=== PATIENT | male | born 1935 | race Caucasian/White ===

== ENCOUNTER 2020-12-22 11:17 | Emergency (ER) | payer OTHER, MEDICARE ==
[~2020-12-22] VITALS: Ht 177.8 cm; Wt 73.9 kg
[2020-12-22 12:08] LABS: CLARITY,URINE CLEAR (Clear); COLOR,URINE YELLOW (Yellow); GLUCOSE, URINE NEGATIVE (Neg); KETONES,URINE NEGATIVE (Neg); LEUKOCYTE ESTERASE ,URINE NEGATIVE (Neg); NITRITES, URINE NEGATIVE (Neg); OCCULT BLOOD,URINE LARGE (Neg); PROTEIN,URINE 30 mg/dl (Neg); UROBILINOGEN,URINE 0.2 E.U/dL (0.2-1.0)
[2020-12-22 12:09] LABS: UA COLLECTION TYPE CLN CATCH MIDSTREAM
[2020-12-22 12:16] LABS: RBC,URINE 50-100 /HPF (0-2)
[2020-12-22 12:17] LABS: BACTERIA,URINE FEW /HPF (Neg); MUCUS STRANDS NONE SEEN /LPF (Neg); SQUAMOUS EPITHELIAL CELL,UR FEW /LPF (FEW)
[2020-12-22 13:54] LABS: BASOPHILS % (AUTO) 0.6 % (0-1); EOSINOPHILS # (AUTO) 0.4 X10'3 (0-0.9); EOSINOPHILS % (AUTO) 5.2 % (0-6); HEMATOCRIT 42.7 % (42.0-52.0); HEMOGLOBIN 14.3 g/dl (14.0-17.9); LYMPHOCYTES # (AUTO) 1.7 X10'3 (1.1-4.8); LYMPHOCYTES % (AUTO) 20.8 % (21-51); MEAN CORPUSCULAR HEMOGLOBIN 32.4 PG (27.0-31.0); MEAN CORPUSCULAR HGB CONC 33.5 g/dL (33.0-36.5); MEAN CORPUSCULAR VOLUME 96.7 FL (78-98); MEAN PLATELET VOLUME 7.9 FL (7.4-10.4); MONOCYTES # (AUTO) 0.6 X10'3 (0-0.9); MONOCYTES % (AUTO) 7.9 % (2-12); NEUTROPHILS # (AUTO) 5.3 X10'3 (1.8-7.7); NEUTROPHILS % (AUTO) 65.5 % (42-75); PLATELET COUNT 192 X10'3 (140-440); RED BLOOD COUNT 4.42 X10'6 (4.70-6.10); RED CELL DISTRIBUTION WIDTH 13.7 % (11.5-14.5); WHITE BLOOD COUNT 8.1 X10'3 (4.5-11.0)
[2020-12-22 14:07] LABS: ALANINE AMINOTRANSFERASE 22 U/L (12-78); ALBUMIN 3.7 G/DL (3.4-5.0); ALBUMIN/GLOBULIN RATIO 1.1 (1.1-1.5); ALKALINE PHOSPHATASE 67 IU/L (46-116); ANION GAP 6 (8-16); ASPARTATE AMINO TRANSFERASE 22 U/L (10-37); BILIRUBIN,TOTAL 0.8 MG/DL (0.1-1.0); BLOOD UREA NITROGEN 18 MG/DL (7-18); BUN/CREATININE RATIO 15.4 (5.4-32.0); CALCIUM 8.3 MG/DL (8.5-10.1); CHLORIDE 107 MMOL/L (99-107); CREATININE 1.17 MG/DL (0.60-1.10); GLUCOSE 129 MG/DL (70-104); POTASSIUM 3.9 MMOL/L (3.5-5.1); SODIUM 142 MMOL/L (135-145); TOTAL CARBON DIOXIDE 28.7 MMOL/L (24-32); TOTAL PROTEIN 7.1 G/DL (6.4-8.2); eGFR 59 ML/MIN
[2020-12-22] MEDS ORDERED: iohexol 300mg/ml 100ml inj. ONE (14:26)
[2020-12-22 15:46] VITALS: BP 150/89
== END 2020-12-22 15:47 | disposition home or self-care (01) ==
LOC: ER 11:18
DX: R31.9 Hematuria, unspecified (principal); Z90.49 Acquired absence of other specified parts of digestive tract; Z86.73 Personal history of transient ischemic attack (TIA), and cerebral infarction without residual deficits; Z79.82 Long term (current) use of aspirin
CPT/HCPCS: 36415; 74177; 80053; 81001; 85025; 87088; 99285; Q9967

== ENCOUNTER 2021-02-02 01:55 | Emergency (ER) | payer OTHER, MEDICARE ==
[~2021-02-02] VITALS: Ht 177.8 cm; Wt 72.2 kg
[2021-02-02 04:40] LABS: CLARITY,URINE CLEAR (Clear); COLOR,URINE YELLOW (Yellow); GLUCOSE, URINE NEGATIVE (Neg); KETONES,URINE NEGATIVE (Neg); LEUKOCYTE ESTERASE ,URINE SMALL (Neg); NITRITES, URINE NEGATIVE (Neg); OCCULT BLOOD,URINE MODERATE (Neg); PROTEIN,URINE NEGATIVE (Neg); UROBILINOGEN,URINE 0.2 E.U/dL (0.2-1.0)
[2021-02-02 04:47] LABS: UA COLLECTION TYPE CLN CATCH MIDSTREAM
[2021-02-02 04:51] LABS: BACTERIA,URINE NONE SEEN /HPF (Neg); MUCUS STRANDS NONE SEEN /LPF (Neg); SQUAMOUS EPITHELIAL CELL,UR FEW /LPF (FEW); WBC,URINE 0-4 /HPF (0-4)
[2021-02-02 06:13] VITALS: BP 107/69
[2021-02-03] MEDS ORDERED: FLO0.4C PO (22:17)
== END 2021-02-02 06:14 | disposition home or self-care (01) ==
LOC: ER 01:56
DX: R33.9 Retention of urine, unspecified (principal); N40.0 Benign prostatic hyperplasia without lower urinary tract symptoms; Z86.73 Personal history of transient ischemic attack (TIA), and cerebral infarction without residual deficits; Z90.49 Acquired absence of other specified parts of digestive tract
CPT/HCPCS: 51702; 81001; 87088; 99284

== ENCOUNTER 2021-02-03 13:59 | Emergency (ER) | payer OTHER, MEDICARE ==
[~2021-02-03] VITALS: Ht 177.8 cm; Wt 72.1 kg
[2021-02-03 15:05] VITALS: BP 150/85
[2021-02-03] MEDS ORDERED: FLO0.4C PO (22:17)
== END 2021-02-03 15:22 | disposition home or self-care (01) ==
LOC: ER 14:00
DX: R33.9 Retention of urine, unspecified (principal); Z59.0 Homelessness; Z90.49 Acquired absence of other specified parts of digestive tract; Z86.73 Personal history of transient ischemic attack (TIA), and cerebral infarction without residual deficits
CPT/HCPCS: 99281

== ENCOUNTER 2021-02-03 21:24 | Emergency (ER) | payer OTHER, MEDICARE ==
[~2021-02-03] VITALS: Ht 177.8 cm; Wt 76.4 kg
[2021-02-03] MEDS ORDERED: FLO0.4C PO (22:17)
[2021-02-03] MEDS ORDERED: LIDOcaine 2% 10ml TOPICAL JELLY (Urojet) TP ONE (22:20)
[2021-02-04 00:27] VITALS: BP 147/88
== END 2021-02-04 00:29 | disposition home or self-care (01) ==
LOC: ER 21:25
DX: R33.9 Retention of urine, unspecified (principal); R31.9 Hematuria, unspecified; Z86.73 Personal history of transient ischemic attack (TIA), and cerebral infarction without residual deficits; Z90.49 Acquired absence of other specified parts of digestive tract; Z79.899 Other long term (current) drug therapy
CPT/HCPCS: 51702; 99284

== ENCOUNTER 2021-02-07 16:52 | Emergency (ER) | payer OTHER, MEDICARE ==
[~2021-02-07] VITALS: Ht 177.8 cm; Wt 75.0 kg
[~2021-02-07 16:52] MED LIST: FLO0.4C PO
[2021-02-07 20:47] VITALS: BP 156/89
--- NOTE | 2021-02-07 20:49 | NUR ---
SENT PATIENT TO BATHROOM FOR A URINE SPECIMAN FROM HIS CATH - PT STATES HIS WILL HELP HIM IN THE BATHROOM
[2021-02-07 22:08] LABS: CLARITY,URINE CLOUDY (Clear); GLUCOSE, URINE NEGATIVE (Neg); KETONES,URINE 15 mg/dl (Neg); LEUKOCYTE ESTERASE ,URINE TRACE (Neg); NITRITES, URINE NEGATIVE (Neg); OCCULT BLOOD,URINE LARGE (Neg); PH,URINE 5.5 (4.8-8.0); PROTEIN,URINE >=300 mg/dl (Neg)
[2021-02-07 22:19] LABS: UA COLLECTION TYPE INDWELLING CATH
[2021-02-07 22:20] LABS: COLOR,URINE DARK YELLOW (Yellow)
[2021-02-07 22:21] LABS: BACTERIA,URINE NONE SEEN /HPF (Neg); RBC,URINE 50-100 /HPF (0-2); SQUAMOUS EPITHELIAL CELL,UR FEW /LPF (FEW)
--- NOTE | 2021-02-14 10:28 | NUR ---
PT CALLED REGARDING HIS VISIT ON 02/11. PT WAS INFORMED THAT HE HAD A UTI AND NEEDED TO BE ON ABX. PT ELOPED AND WAS ADVISED TO COME BACK IN IF HE CONTINUED TO HAVE SYMPTOMS. PT STATES THAT HE WANT TO [facility] AND THAT THEY HAD CALLED HIM AND ORDERED ABX, BUT PT HAS NOT PICKED THEM UP YET, HE IS HOMELESS AND DOES NOT HAVE TRANSPORTATION. PT WAS ADVISED TO START HIS ABX VERONICA AND TO RETURN TO THE ER SHOULD HE CONTINUE TO HAVE UTI SYMPTOMS. PT ALSO STATES THAT HE HAS BEEN HAVING MULTIPLE FALLS AND THAT HE TORE HIS GOEL BAG AND THAT IT WAS LEAKING. PT WAS ADVISED TO RETURN TO THE ER TO HAVE THE BAG CHANGED OUT. PT STATES THAT HE WOULD RETURN SOON HE GOT TRANSPORTATION
== END 2021-02-08 02:11 | disposition home or self-care (01) ==
LOC: ER 16:53
DX: T83.028A Displacement of other urinary catheter, initial encounter (principal); Z85.51 Personal history of malignant neoplasm of bladder; Z79.899 Other long term (current) drug therapy; Z86.73 Personal history of transient ischemic attack (TIA), and cerebral infarction without residual deficits; Z90.49 Acquired absence of other specified parts of digestive tract; Z59.0 Homelessness; Y84.6 Urinary catheterization as the cause of abnormal reaction of the patient, or of later complication, without mention of misadventure at the time of the procedure; Y92.89 Other specified places as the place of occurrence of the external cause
CPT/HCPCS: 81001; 87077; 87088; 87186; 99283

== ENCOUNTER 2023-06-23 12:53 | Emergency (ER) | payer MEDICARE, OTHER ==
[~2023-06-23] VITALS: Ht 177.8 cm; Wt 69.8 kg
[2023-06-23 16:50] LABS: BASOPHILS # (AUTO) 0.1 X10'3 (0-0.2); BASOPHILS % (AUTO) 0.8 % (0-1); EOSINOPHILS # (AUTO) 0.7 X10'3 (0-0.9); EOSINOPHILS % (AUTO) 6.9 % (0-6); HEMATOCRIT 40.8 % (42.0-52.0); HEMOGLOBIN 13.5 g/dl (14.0-17.9); LYMPHOCYTES # (AUTO) 1.8 X10'3 (1.1-4.8); LYMPHOCYTES % (AUTO) 18.7 % (21-51); MEAN CORPUSCULAR HEMOGLOBIN 31.8 PG (27.0-31.0); MEAN CORPUSCULAR VOLUME 96.4 FL (78-98); MEAN PLATELET VOLUME 7.8 FL (7.4-10.4); MONOCYTES # (AUTO) 0.9 X10'3 (0-0.9); MONOCYTES % (AUTO) 9.3 % (2-12); NEUTROPHILS # (AUTO) 6.2 X10'3 (1.8-7.7); NEUTROPHILS % (AUTO) 64.3 % (42-75); PLATELET COUNT 212 X10'3 (140-440); RED BLOOD COUNT 4.24 X10'6 (4.70-6.10); RED CELL DISTRIBUTION WIDTH 14.9 % (11.5-14.5); WHITE BLOOD COUNT 9.6 X10'3 (4.5-11.0)
[2023-06-23 17:05] LABS: ALANINE AMINOTRANSFERASE 15 U/L (12-78); ALBUMIN 3.3 G/DL (3.4-5.0); ALBUMIN/GLOBULIN RATIO 0.9 (1.1-1.5); ALKALINE PHOSPHATASE 69 IU/L (46-116); ANION GAP 5 (8-16); ASPARTATE AMINO TRANSFERASE 21 U/L (10-37); BILIRUBIN,TOTAL 0.8 MG/DL (0.1-1.0); BLOOD UREA NITROGEN 20 MG/DL (7-18); BUN/CREATININE RATIO 17.4 (10.0-20.0); CALCIUM 8.4 MG/DL (8.5-10.1); CHLORIDE 104 MMOL/L (99-107); CREATININE 1.15 MG/DL (0.60-1.10); GLUCOSE 98 MG/DL (70-104); LIPASE 71 U/L (16-77); POTASSIUM 4.1 MMOL/L (3.5-5.1); SODIUM 137 MMOL/L (135-145); TOTAL CARBON DIOXIDE 27.6 MMOL/L (24-32); eCRCL 44 ML/MIN; eGFR 60 ML/MIN
[2023-06-23 17:37] VITALS: TEMP 98.8
[2023-06-23 17:41] LABS: BILIRUBIN,URINE NEGATIVE (Neg); CLARITY,URINE CLOUDY (Clear); COLOR,URINE YELLOW (Yellow); GLUCOSE, URINE NEGATIVE (Neg); KETONES,URINE NEGATIVE (Neg); LEUKOCYTE ESTERASE ,URINE MODERATE (Neg); NITRITES, URINE POSITIVE (Neg); OCCULT BLOOD,URINE NEGATIVE (Neg); PROTEIN,URINE NEGATIVE (Neg); UROBILINOGEN,URINE 0.2 E.U/dL (0.2-1.0)
[2023-06-23 17:50] LABS: SQUAMOUS EPITHELIAL CELL,UR FEW /LPF (FEW); UA COLLECTION TYPE CLN CATCH MIDSTREAM
[2023-06-23 17:51] LABS: BACTERIA,URINE 4+ /HPF (Neg); WBC,URINE TNTC /HPF (0-4)
[2023-06-23 17:52] LABS: TRANSITIONAL EPI CELLS,URINE FEW /HPF; WBC CLUMPS,URINE FEW /HPF (NEGATIVE)
[2023-06-23 18:12] LABS: MAGNESIUM 2.3 MG/DL (1.5-2.4); PRO BRAIN NATRIURETIC PEPTIDE 98 PG/ML (0-450)
[2023-06-23] MEDS ORDERED: normal saline 1000ML IV soln IVB ONE (19:35)
[2023-06-23] MEDS ORDERED: CefTRIAXone 2gm/D5W 50ml BAG 50 ML IV SCH (19:40)
[2023-06-23] MEDS ORDERED: CefTRIAXone 2gm/D5W 50ml BAG 50 ML IV ONE (19:43)
[2023-06-23] MEDS ORDERED: iohexol 300mg/ml 100ml inj. ONE (19:56)
[2023-06-23 20:00] VITALS: BP 142/78; PULSE 82; RESP 16; O2SAT 98
[2023-06-23] MEDS ORDERED: CEPH250T PO (21:03)
== END 2023-06-23 22:16 | disposition home or self-care (01) ==
LOC: ER 12:53
DX: N39.0 Urinary tract infection, site not specified (principal); Z79.2 Long term (current) use of antibiotics; Z98.890 Other specified postprocedural states
CPT/HCPCS: 36415; 71045; 74177; 80053; 81001; 83690; 83735; 83880; 84484; 85025; 87077; 87088; 87186; 93005; 96365; 99285; J0696; J3490; J7030; J7040; Q9967